=== PATIENT | male | born 1960 | race Caucasian/White ===

== ENCOUNTER 2024-11-22 17:26 | Emergency (ER) | payer OTHER ==
[~2024-11-22] VITALS: Ht 165.1 cm; Wt 99.3 kg
[2024-11-22 17:52] VITALS: BP 106/88; PULSE 67; RESP 18; TEMP 98.6; O2SAT 94
[2024-11-22 18:41] VITALS: BP 130/75; RESP 18; TEMP 98.6; O2SAT 94
[2024-11-22 18:47] LABS: BASOPHIL # 0.0 10^3/uL (0.0-0.1); BASOPHIL % 0.2 % (0.2-1.2); EOSINOPHIL # 0.0 10^3/uL (0.0-0.2); EOSINOPHIL % 0.0 % (0.0-5.0); HEMATOCRIT(ML) 43.6 % (37.0-53.0); IG % 0.10 % (0.00-0.50); LYMPHOCYTES # 1.39 10^3/uL1 (1.0-4.8); LYMPHOCYTES % 13.1 % (24.0-44.0); MEAN CORP HGB 31.2 pg (26-34); MEAN CORP HGB CONCENTRATION 33.5 g/dL (33-36.5); MEAN CORP VOLUME 93.2 fL (78-100); MONOCYTES # 0.6 10^3/uL (0.3-0.8); MONOCYTES % 5.6 % (5.0-12.0); NEUTROPHIL # 8.6 10^3/uL (1.8-7.7); NEUTROPHILS % 81.0 % (41.0-85.0); RED BLOOD CELL 4.68 10^6/uL (4.50-5.90); RED CELL DISTRIBUTION WIDTH 13.2 % (11.5-14.5); WHITE BLOOD CELL 10.6 10^3/uL (4.5-11.0)
[2024-11-22 18:48] VITALS: BP 114/72; PULSE 67; RESP 18; TEMP 98.6; O2SAT 94
[2024-11-22 19:03] LABS: ALANINE AMINOTRANSFERASE(ML) 34.0 U/L (12-78); ALBUMIN(ML) 3.9 g/dL (3.4-5.0); CREATININE SERUM 1.43 mg/dL (0.59-1.40); EST GFR, NON-AA 50.1 (>/=60)
[2024-11-22 19:04] LABS: INR 1.0; PROTHROMBIN PROTIME 10.4 SEC (9.3-11.6)
[2024-11-22 20:39] VITALS: BP 124/91; PULSE 86; RESP 18; TEMP 98.6; O2SAT 96
== END 2024-11-22 21:05 | disposition home or self-care (01) ==
LOC: ER 17:26
DX: S89.91XA Unspecified injury of right lower leg, initial encounter (principal); R53.1 Weakness; E11.9 Type 2 diabetes mellitus without complications; G40.909 Epilepsy, unspecified, not intractable, without status epilepticus; I10 Essential (primary) hypertension; Z79.01 Long term (current) use of anticoagulants; Z90.89 Acquired absence of other organs; W18.39XA Other fall on same level, initial encounter; Y93.89 Activity, other specified; Y92.89 Other specified places as the place of occurrence of the external cause; Y99.8 Other external cause status
CPT/HCPCS: 99285; 73701; 80053; 85025; 36415; 85610; 85730; Q9965